=== PATIENT | male | born 1955 | race Caucasian/White ===

== ENCOUNTER 2019-11-09 07:28 | Inpatient (IN) ==
--- NOTE | 2019-10-18 13:02 | PAT Medication Instructions ---
Medication Instructions Date of Service October 18, 2019 Home Medications acetaminophen [Tylenol Arthritis Pain] 1,300 mg PO TID aspirin [Aspir-81] 81 mg PO QPM naproxen sodium [Aleve] 440 mg PO QAM ASK your surgeon for instructions naproxen sodium [Aleve] 440 mg PO QAM Take morning of surgery With a small sip of water, OTHERWISE NOTHING TO EAT OR DRINK AFTER MIDNIGHT: acetaminophen [Tylenol Arthritis Pain] 1,300 mg PO TID (okay to take up to 4 hours prior to surgery if needed) Take evening before surgery acetaminophen [Tylenol Arthritis Pain] 1,300 mg PO TID aspirin [Aspir-81] 81 mg PO QPM Other Notes If you have any questions please call us at [phone] or [phone] or [phone] or [phone]
--- NOTE | 2019-10-19 13:08 | Anesthesiology Consultation ---
Date of Service October 19, 2019 Assessment & Plan (1) Encounter for pre-operative examination: Chart Review Chart Review: Acceptable Risk for Surgery (pending PCP clearance and Covid testing ) and Patient seen in Pre Admission Testing Awaiting surgeon ordered PCP clearance scheduled 10/24 Per PAT appt on 10/19/19, pt resides in [facility]. 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 Educated Covid test needed done three business days prior to surgery. Did educated patient on the importance of social distancing, masking and self quaranting from time of test until surgery. Teaching & Discussion Pre-Anesthesia Teaching/Discussion Notes: Instructed NPO after midnight before surgery,except medications with 15 cc of water. Medication instructions provided according to the PAT guidelines. History Surgery Operation Date: 11/09/19 13:25 Proposed Procedures p Right Anterior Total Hip Arthroplasty - Singh Dennis DO Height/Weight Height: 6 ft 1 in Weight: 105 kg Allergies Allergy/AdvReac Type Severity Reaction Status Date / Time No Known Allergies Allergy Verified 10/18/19 08:57 Medications Home Medications Medication Instructions Recorded Confirmed Last Taken acetaminophen [Tylenol Arthritis 1,300 mg PO TID 10/18/19 10/18/19 Unknown Pain] aspirin [Aspir-81] 81 mg PO QPM 10/18/19 10/18/19 Unknown naproxen sodium [Aleve] 440 mg PO QAM 10/18/19 10/18/19 Unknown Past Medical History Medical History Arthritis GERD (gastroesophageal reflux disease) Occ- no meds needed Kidney stones Exercise / Class Metabolic Activity II 4-5 Yardwork/Stairs/Walk up hill (one flight of stairs- no chest pain or SOB ) Past Family History Family History Mother Family history of diabetes mellitus Past Surgical History Surgical History (Updated 10/19/19 @ 13:32 by Beverly Barone PA-C) History of appendectomy History of colonoscopy History of cystoscopy WITH LITHO/STENT X 3 History of mandibular surgery No issues opening or closing jaw Past Anesthesia History No Hx of Anesthesia Complications (one episode of slow to wake with colonoscopy -no intubation or prolonged stay- just groggy post op) and No Family Hx of Anesthesia Complications History of PONV No Hx of PONV and No Hx of Motion Sickness Social History Smoking Status: Former smoker Do You Dip or Chew Tobacco: Yes (1 CAN PER 1-2 DAYS) Smoking End Date: QUIT 25 YRS AGO Hx Alcohol Use: No Hx Substance Use: No Review of Systems Patient denies chest pain, shortness of breath, dyspnea on exertion, reflux, cough, wheezing, palpitations. No hx of seizures, stroke, PA, apnea/snoring. No hx of blood clots or blood transfusions Physical Exam Vital Signs VITALS BP 148/94 P 77 TEMP 98.2 SP02 98% RESP 16 Constitutional no acute distress ENMT Mouth: no TMJ clicking Thyromental Distance: > or= 3.5 Finger Breadths (3.5) Mallampati Class: I Full dentures on top Missing bottom molars Neck + thick neck (mild ); neck extension not limited Respiratory normal respiratory effort; no respiratory distress Auscultation: lungs clear to auscultation bilaterally; no wheezes Cardiovascular Rate/Rhythm: regular rate and regular rhythm Heart Sounds: no murmur Vessels: no carotid bruit Musculoskeletal Spine: no pain with cervical ROM Neurologic moves all extremities Psychiatric Orientation: alert Testing Laboratory Results 10/19/19 13:31 10/19/19 13:31 PT 11.0 Seconds (9.0-12.0) 10/19/19 13:31 INR 1.0 (0.9-1.1) 10/19/19 13:31 APTT 30.6 Seconds (21.0-31.0) 10/19/19 13:31 Hemoglobin A1c 5.3 % (4.5-5.6) 10/19/19 13:31 Urine Color Yellow 10/19/19 13:31 Urine Appearance Clear (Clear) 10/19/19 13:31 Urine pH 5.0 (4.5-7.5) 10/19/19 13:31 Ur Specific Silt 1.025 (1.000-1.030) 10/19/19 13:31 Urine Protein Negative (Negative) 10/19/19 13:31 Urine Glucose (UA) Negative (Negative) 10/19/19 13:31 Urine Ketones Negative (Negative) 10/19/19 13:31 Urine Nitrite Negative (Negative) 10/19/19 13:31 Ur Leukocyte Esterase Negative (Negative) 10/19/19 13:31 Blood Type O Positive 10/19/19 13:31 Antibody Screen NEGATIVE 10/19/19 13:31 10/19/19 13:31 Urine Culture - Preliminary Urine,Clean Catch No growth - Less than 1,000 colonies/mL, Final report to follow. Electrocardiogram Date: 10/19/19 Findings: + NSR @ (66) Chest X-Ray Date: 10/19/19 Findings: + NAD
--- NOTE | 2019-10-19 13:59 | XRay Report ---
XR chest Pre-admission PA/Lat CLINICAL HISTORY: Preoperative evaluation. COMPARISON STUDY: No previous studies for comparison. FINDINGS: Lung volumes are diminished. Lungs are clear. There is no pneumothorax or pleural effusion. Cardiac size is normal. Mediastinal contours are normal. There is no evidence for pulmonary edema. IMPRESSION: No acute cardiopulmonary findings. ACT 112: Negative or not required by law. Electronically signed by: Juanpablo Hardy M.D. 10/19/2019 1:58 PM
[2019-10-19 14:13] LABS: Basophils # (auto) 0.02 K/uL (0-0.2); Basophils % (auto) 0.2 %; Eosinophils % (auto) 2.1 %; Hematocrit (blood only) 45.7 % (42-52); Hemoglobin 15.7 g/dL (14.0-18.0); Immature Granulocytes # (auto) 0.05 K/uL (0.00-0.02); Immature Granulocytes % (auto) 0.5 %; Lymphocytes % (auto) 25.8 %; Mean Corpuscular Hemoglobin 31.7 pg (25-34); Mean Corpuscular Hgb Conc 34.4 g/dL (32-36); Mean Corpuscular Volume 92.1 fL (80-100); Mean Platelet Volume 9.6 fL (7.4-10.4); Monocytes # (auto) 0.77 K/uL (0.11-0.59); Monocytes % (auto) 8.3 %; Neutrophils # (auto) 5.88 K/uL (1.4-6.5); Neutrophils % (auto) 63.1 %; Platelet Count 294 K/uL (130-400); RDW Coefficient of Variation 13.5 % (11.5-14.5); RDW Standard Deviation 45.9 fL (36.4-46.3); Red Blood Count 4.96 M/uL (4.7-6.1); White Blood Count 9.32 K/uL (4.8-10.8)
[2019-10-19 14:17] LABS: Albumin Level 4.2 gm/dl (3.4-5.0); BUN Creatinine Ratio 25.3 (10-20); Calcium 9.2 mg/dl (8.5-10.1); Creatinine Clr Calc Pharmacy 97.2 ml/min; Est GFR (African American) 93.6; Est GFR (Non-African American) 80.7; Potassium 4.2 mmol/L (3.5-5.1)
[2019-10-19 14:18] LABS: Estimated Average Glucose 105 mg/dl; Hemoglobin A1C 5.3 % (4.5-5.6)
[2019-10-19 14:28] LABS: Partial Thromboplastin Ratio 1.1; Partial Thromboplastin Time 30.6 Seconds (21.0-31.0)
[2019-10-19 14:37] LABS: Appearance Urine Clear (Clear); Bilirubin Urine Negative (Negative); Blood Urine Negative (Negative); Color Urine Yellow; Glucose Urine UA Negative (Negative); Ketones Urine Negative (Negative); Leukocyte Esterase Urine Negative (Negative); Nitrite Urine Negative (Negative); Protein Urine Negative (Negative); Specific Gravity Urine 1.025 (1.000-1.030); Urobilinogen Urine Negative (Negative)
--- NOTE | 2019-10-20 15:16 | Electrocardiogram Report ---
Test Reason : Blood Pressure : / mmHG Vent. Rate : 066 BPM Atrial Rate : 066 BPM P-R Int : 162 ms QRS Dur : 098 ms QT Int : 420 ms P-R-T Axes : 078 048 062 degrees QTc Int : 440 ms Normal sinus rhythm Normal ECG No previous ECGs available Confirmed by Bart España ([id number]) on 10/20/2019 3:15:52 PM Referred By: Singh Dennis Confirmed By:Jl España
--- NOTE | 2019-11-06 11:29 | History & Physical Report ---
Date of Service November 09, 2019 Assessment & Plan (1) Degenerative joint disease of right hip: I have indicated the patient for right anterior total hip replacement. The risks, benefits and complications of surgery were explained to the patient which include but not limited to infection, acute blood loss, DVT/PE, injury to nerves, vessels, bone, soft tissue, arthrofibrosis, chronic pain, failure of the prosthesis, hip dislocation, leg length discrepancy, need for additional surgery, cardiac and pulmonary events and . The patient wished to proceed with surgery and informed consent was obtained at this time. We will plan for 81mg ASA BID post-operatively for DVT prophylaxis. Upon discharge the patient will be discharged home with home health services. Appropriate clearances by PCP were obtained. History of Present Illness Chief Complaint: Right hip pain/DJD Primary Care Provider: Luis Miguel Anderson MD The patient is a 64 year old male who presents with complaints of severe right hip pain and DJD. The patient has failed outpatient conservative treatments to this point which included NSAIDs, IA corticosteroid injection, home exercise/walking program. The patient's pain and limited function have progressed to the point where they severely hinder their activities of daily living and they no longer tolerate exercise programs. They are requesting to proceed with total hip replacement surgery. Allergies Allergy/AdvReac Type Severity Reaction Status Date / Time No Known Allergies Allergy Verified 11/09/19 08:03 Home Medications Home Medications Medication Instructions Recorded Confirmed Type acetaminophen [Tylenol Arthritis 1,300 mg PO TID 10/18/19 11/09/19 History Pain] aspirin [Aspir-81] 81 mg PO QPM 10/18/19 11/09/19 History naproxen sodium [Aleve] 440 mg PO QAM 10/18/19 11/09/19 History irbesartan 150 mg PO DAILY 10/29/19 11/09/19 History Past Med/Surg History Medical History Arthritis GERD (gastroesophageal reflux disease) Occ- no meds needed Kidney stones Surgical History History of appendectomy History of colonoscopy History of cystoscopy WITH LITHO/STENT X 3 History of mandibular surgery No issues opening or closing jaw Family History Mother Family history of diabetes mellitus Social History Preferred Language: Kiswahili Communication Ability: Effective Civil Engineer Required: No Beliefs That Will Affect Care: None Current Living Situation: Spouse and Family Other Information That Helps Us Care for You: No Feels Safe at Home: Yes Safety Concerns: Feels Safe At This Time Smoking Status: Former smoker Do You Dip or Chew Tobacco: Yes (1 CAN PER 1-2 DAYS) ; Smoking End Date: QUIT 25 YRS AGO ; Second Hand Exposure: Yes (UNCLE SMOKED) ; Hx Alcohol Use: No Hx Substance Use: No Review of Systems Review of Systems: All systems reviewed & are unremarkable except as noted in HPI & below Constitutional: as per Subjective / HPI Physical Exam Physical Exam: RLE NVSI +EHL/FHL/TA/GS SILT grossly, +2 DP pulse, compartments soft NT, limited painful ROM of the hip, antalgic gait. Constitutional: WD/WN, vitals as above Eyes: PERRL, conjunctivae normal, anicteric sclerae ENMT: external ear and nose normal, oropharynx normal Neck: trachea midline, no thyromegaly Respiratory: normal respiratory effort, lungs clear to auscultation Cardiovascular: RRR, no murmur, no edema Gastrointestinal (Abdomen): normal bowel sounds, soft, nontender, no hepatosplenomegaly Musculoskeletal: no cyanosis or clubbing, extremities motor strength 5/5 Skin: no rashes, warm and dry Neurologic: patellar DTR's 2+ bilat, sensation intact Psychiatric: A+Ox3, euthymic affect Lymphatic: no cervical or axillary lymphadenopathy Results & Data Results & Data ([facility]) Diagnostic Findings Multiple views of the hip demonstrates severe DJD with complete loss of the joint space. +osteophytes, +sclerosis, +subchondral cysts.
[~2019-11-09 07:28] MED LIST: ACETAMINOPHEN 500 MG TAB PO SCH; BUPIVACAINE 0.5 % 5 MG/1 ML PF 10ML VIAL ONE; CEFAZOLIN 2000MG 2,000 MG/15 ML SYR IV SCH; CeleBREX 200 MG CAP PO SCH; FAMOTIDINE 20 MG TAB PO SCH; GABAPENTIN 600 MG DOSE PO SCH; LR 500ML BOLUS, THEN 15ML/HR IV SCH; METOCLOPRAMIDE HCL 10 MG TABLET PO SCH; ROPIVACAINE 0.5% HCL/PF 150 MG, BUPIVACAINE 0.5% MPF 30 ML, EPINEPHrine 30MG/30ML (OR U... INSTIL SCH; TRANEXAMIC ACID 1,000 MG **IV Intra-op IV SCH; TRANEXAMIC ACID 1,000 MG **IV Pre-op IV SCH; dexAMETHasone 4 MG TAB PO SCH
[2019-11-09] MEDS ORDERED: MIDAZOLAM HCL 1 MG/ML 2ML VIAL ONE (07:52)
[2019-11-09] MEDS ORDERED: PROPOFOL IV EMULSION 10 MG/ML 20 ML VIAL IV ONE ×3 (07:58→12:55)
[2019-11-09] MEDS ORDERED: LIDOCAINE HCL 2% 2 ML VIAL/AMP(20MG/ML) INFIL ONE (07:58)
[2019-11-09] MEDS ORDERED: ONDANSETRON INJ 2 MG/ML 2 ML VIAL ONE (07:58)
[2019-11-09] MEDS ORDERED: DEXAMETHASONE SOD INJ 4 MG/ML VIAL ONE (07:58)
[2019-11-09] MEDS ORDERED: GLYCOPYRROLATE 0.2 MG/ML VIAL ONE (07:58)
[2019-11-09] MEDS ORDERED: ePHEDrine sulfate 50 MG/ML AMP IV PRN (09:06)
[2019-11-09] MEDS ORDERED: ONDANSETRON INJ 2 MG/ML 2 ML VIAL IV PRN ×2 (09:06→12:58)
[2019-11-09] MEDS ORDERED: ATROPINE SULFATE 0.1 MG/ML 10ML SYR IV PRN (09:06)
[2019-11-09] MEDS ORDERED: fentaNYL citrate 100 MCG/2 ML VIAL IV PRN (09:06)
[2019-11-09] MEDS ORDERED: HYDROmorphone INJ 2 MG/ML SYR/VIAL IV PRN (09:06)
--- NOTE | 2019-11-09 09:35 | History & Physical Bridge Note ---
Date of Service November 09, 2019 History & Physical Bridge Note I have examined the patient, reviewed the History & Physical and in the interval since the performance of the History & Physical I have noted the following changes of clinical significance: no changes noted
[2019-11-09] MEDS ORDERED: ORTHO JOINT ANESTHETIC ONE (09:45)
[2019-11-09] MEDS ORDERED: BACITRACIN INJ 50,000 UNIT VIAL ONE (09:45)
[2019-11-09] MEDS ORDERED: ePHEDrine sulfate 50 MG/ML SYR ONE (10:14)
--- NOTE | 2019-11-09 11:40 | Post Operative Brief Note ---
Immediate Post Op Note v1 Date of Surgery November 09, 2019 Pre & Post Diagnosis Operation Date: 11/09/19 09:50 Pre-Op Diagnosis: Unilateral Primary Osteoarthritis, Right Hip Post-Op Diagnosis: Unilateral Primary Osteoarthritis, Right Hip I identified the patient and participated in the time-out.: Yes Procedure Operation Date: 11/09/19 09:50 Actual Procedures p Right Anterior Total Hip Arthroplasty, uncemented (Right) - Singh Dennis DO Surgeon Singh Dennis DO Automatic Developer Yeison Hatch Estimated Blood Loss 195 Findings Consistent with Post-Op Diagnosis Fluids 1600 cc LR Specimens Femoral head Anesthesia Type Spinal MAC Complications none Disposition Disposition: Recovery Room Overlapping Procedure I was present for: the critical portions of procedure. I was immediately available: during the entire case. Back up surgeon: was not required during procedure.
--- NOTE | 2019-11-09 11:43 | Operative Report ---
Post Operative Report Pre & Post Diagnosis Operation Date: 11/09/19 09:50 Pre-Op Diagnosis: Unilateral Primary Osteoarthritis, Right Hip Post-Op Diagnosis: Unilateral Primary Osteoarthritis, Right Hip I identified the patient and participated in the time-out.: Yes Procedure Operation Date: 11/09/19 09:50 Actual Procedures p Right Anterior Total Hip Arthroplasty, uncemented (Right) - Singh Dennis DO Surgeon Singh Dennis DO Subway Car Repairer Yeison Hatch Estimated Blood Loss 195 Findings Consistent with Post-Op Diagnosis Fluids 1600 cc LR Specimens Femoral head Anesthesia Type Spinal MAC Complications none Disposition Disposition: Recovery Room Indications The patient is a 64-year-old male who presents with severe progressive right hip AVN/DJD who has failed outpatient conservative treatments. I indicated the patient for a anterior total hip replacement and the risks and benefits were explained in detail which include but not limited to infection, bleeding, blood clot, damage to surrounding bone, nerves, vessels, soft tissue, hip dislocation, failure of the prosthesis, leg length discrepancy, need for additional surgery and . The patient agreed to proceed with replacement of the hip and informed consent was obtained. Appropriate clearances were obtained. Description of Procedure COMPONENTS USED: [employer] NephPhase Focus Anthology hip system: Acetabulum size 56, femur size 10 high offset, femoral head 36+, liner 5630, acetabular screw 25 mm x 1. DESCRIPTION OF PROCEDURE: Following satisfactory spinal anesthesia, the patient was placed supine on the OR table. The left leg was placed in the well leg allen and the right leg in the traction device. The right leg was prepared with ChloraPrep and draped sterilely. A surgical timeout was performed, patient identified and site saqib verified. Appropriate antibiotics were given. A standard anterior approach in the interval between the sartorius and tensor muscles was performed. Dissection was carried down through subcutaneous tissues. Electrocautery was utilized for hemostasis. Circumflex femoral vessels were identified, tied and ligated. The anterior capsular fat pad was removed and the capsulotomy was performed revealing the arthritic femoral neck and head. A femoral neck cut was made with reciprocating saw and the bone fragments removed. The acetabular self-retraining retractor was placed. Acetabular reaming was completed under fluoroscopic guidance, a 56 shell was impacted into an anatomic position and secured with a dome screw. Local anesthetic was placed and following irrigation, the polyethylene liner was placed. The femur was placed into position of external rotation, extension and adduction. Femoral canal was prepared up to the size 10 high offset. Trial reduction with a 36+0 neck length head showed good soft tissue tension, leg lengths restored, and good fit and fill of the proximal canal using fluoroscopic landmarks. The hip was dislocated. The trial component was removed. The final implant was placed. The hip was irrigated with sterile saline solution and reduced. A Betadine soak was performed. After 3 minutes, the hip was once more irrigated with copious sterile saline solution with bacitracin. Aarti-incisional soft tissue was injected utilizing [place] [employer] which includes a combination of Ropivicaine 0.5% 150mg, Bupivicaine 0.5%/Epinephrine 1:200,000 30ml, Toradol 30mg, Dexamethasone 4mg, Ketamine 10mg, Clonidine 100mcg and NSS 30ml solution. The capsule was then closed with 1-0 Vicryl interrupted figure of eight sutures. The fascia was closed with a running suture of #1 Vicryl, the subcutaneous tissues with 2-0 Vicryl and the skin demario and a dry sterile dressing was applied which included Nan incisional VAC. The patient tolerated the procedure well and was transported to PACU in stable condition. Due to the complex nature of the procedure, the entire surgery was performed with the operational assistance of Yeison Hatch PA-C. The assistant corporate controller, under direct supervision, was involved in the actual performance of all aspects of the surgical procedure including patient positioning, hemostasis, tissue retraction, instrument management and wound closure. I attest to the content of the Intraoperative Record and any orders documented therein. Any exceptions are noted below.
--- NOTE | 2019-11-09 11:49 | Fluoroscopy Report ---
FL hip RT 1V CLINICAL HISTORY: RT ANTERIOR HIP COMPARISON STUDY: FLUOROSCOPY TIME: 39 seconds. NUMBER OF FLUOROSCOPIC IMAGES: 2 FINDINGS: 2 intraoperative fluoroscopic spot images reveal postsurgical changes of a total right hip arthroplasty. There is no dislocation IMPRESSION: Intraoperative fluoroscopic spot images demonstrating a total right hip arthroplasty. ACT 112: Negative or not required by law. Electronically signed by: Tristan Adler M.D. 11/09/2019 11:48 AM
--- NOTE | 2019-11-09 12:33 | Anesthesiology Progress Note ---
Date of Service November 09, 2019 Anesthesia Post Procedure Vital Signs Vital Signs: Temp Pulse Pulse Resp BP BP Pulse Ox 11/09/19 12:20 36.5 C 60 18 114/76 95 11/09/19 12:10 70 18 121/82 95 11/09/19 12:02 36.4 C L 75 18 110/72 98 11/09/19 09:02 58 L 20 137/85 97 11/09/19 07:57 37.2 C 54 L 20 146/91 H 96 Pain Intensity Right Hip: Pain Intensity: 4 Transfer of Care Handoff Completed per policy Notes Mental Status: alert / awake / arousable and participated in evaluation Patient Amnestic to Procedure: Yes Nausea / Vomiting: adequately controlled Pain: adequately controlled Airway Patency, RR, SpO2: stable & adequate BP & HR: stable & adequate Hydration State: stable & adequate Anesthetic Complications: no major complications apparent and Pt Satisfied with anesthetic care
--- NOTE | 2019-11-09 12:47 | XRay Report ---
XR hip 1V RT w pelvis HISTORY: 64 years-old Male IN PACU - A/P PELVIS and LATERAL HIP right hip total joint arthroplasty COMPARISON: Fluoroscopic images of the right hip 11/09/2019 TECHNIQUE: AP view of the pelvis with crosstable lateral view of the right hip FINDINGS: Right hip total joint arthroplasty. There is satisfactory alignment without acute fracture or retaine d foreign body. Lateral skin demario with surgical drainage catheter. Moderate left hip osteoarthriti s. IMPRESSION: Right hip total joint arthroplasty with expected postoperative findings. ACT 112: Negative or not required by law. The above report was generated using voice recognition software. It may contain grammatical, syntax o r spelling errors. Electronically signed by: Karthik Decker M.D. 11/09/2019 12:46 PM
[2019-11-09] MEDS ORDERED: MAGNESIUM HYDROXIDE SUSP 30 ML UDC PO PRN (12:58)
[2019-11-09] MEDS ORDERED: bisacodyL 10 MG SUPP PR PRN (12:58)
[2019-11-09] MEDS ORDERED: HYDROmorphone INJ 0.5 MG/0.5 ML SYR IV PRN (12:58)
[2019-11-09] MEDS ORDERED: OXYCODONE HCL IR 5 MG TAB (IMMEDIATE RELEASE) PO PRN (12:58)
[2019-11-09] MEDS ORDERED: NALOXONE HCL 0.4 MG/1 ML VIAL/CARP IV PRN (12:58)
[2019-11-09] MEDS ORDERED: METOCLOPRAMIDE HCL INJ 5 MG/ML 2 ML VIAL IV PRN (12:58)
[2019-11-09] MEDS ORDERED: CEFAZOLIN 3000MG/72.5 ML BAG IV SCH (14:00)
[2019-11-09] MEDS: SODIUM CHLORIDE 0.9% 1000ML 1,000 ML IV SCH (14:08)
[2019-11-09] MEDS: ACETAMINOPHEN 500 MG TAB PO SCH (16:21)
[2019-11-09] MEDS: KETOROLAC TROMETHAMINE 15 MG/ML VIAL IV SCH (17:42)
[2019-11-09] MEDS: CEFAZOLIN 3,000 MG in DEXTROSE 5% 50 ML IV SCH (17:43)
--- NOTE | 2019-11-09 20:33 | Orthopedic Progress Note ---
Date of Service November 09, 2019 Assessment & Plan (1) Degenerative joint disease of right hip: s/p R anterior SCOT -ancef x24 -DVT ppx: SCDs, TEDs, 81 mg ASA BID -WBAT RLE -PT/OT -PO XR demonstrates well aligned well fixed prothesis without fracture/dislocation. -am labs -DC planning Admission and Anticipated Discharge Date Admission Date: November 09, 2019 Subjective Post Operative Progress Note Patient seen sitting in chair at bedside, comfortable, denies complaints, pain well controlled, no acute issues. Review of Systems Review of Systems: All systems reviewed & are unremarkable except as noted in HPI & below Constitutional: as per Subjective / HPI Physical Exam Physical Exam: RLE NVSI +EHL/FHL/TA/GS SILT grossly, +2 DP pulse, compartments soft NT, dressing cdi. Constitutional: WD/WN, vitals as above Results & Data ([place]) Vital Signs (Past 12 Hours) Vital Signs Temp Pulse Pulse Resp BP BP Pulse Ox 11/09/19 19:34 36.8 C 75 16 114/67 93 11/09/19 16:54 36.5 C 92 H 18 151/93 H 97 11/09/19 15:52 36.3 C L 50 L 16 125/63 96 11/09/19 14:15 72 16 116/72 94 11/09/19 13:46 79 16 123/64 94 11/09/19 13:24 36.3 C L 65 16 123/71 95 11/09/19 12:52 36.4 C L 45 L 114/70 95 11/09/19 12:30 55 L 16 115/72 95 11/09/19 12:20 36.5 C 60 18 114/76 95 11/09/19 12:10 70 18 121/82 95 11/09/19 12:02 36.4 C L 75 18 110/72 98 11/09/19 09:02 58 L 20 137/85 97
[2019-11-09] MEDS: DOCUSATE SODIUM 100 MG CAP PO SCH (20:47)
[2019-11-09] MEDS ORDERED: SENNA 8.6 MG TAB PO SCH (21:00)
[2019-11-10] MEDS: KETOROLAC TROMETHAMINE 15 MG/ML VIAL IV SCH ×3 (00:30→11:42)
[2019-11-10] MEDS: ACETAMINOPHEN 500 MG TAB PO SCH ×2 (00:30→07:57)
[2019-11-10] MEDS: SODIUM CHLORIDE 0.9% 1000ML 1,000 ML IV SCH (01:39)
[2019-11-10] MEDS: CEFAZOLIN 3,000 MG in DEXTROSE 5% 50 ML IV SCH (02:01)
[2019-11-10 06:20] LABS: Hematocrit (blood only) 38.1 % (42-52); Hemoglobin 12.8 g/dL (14.0-18.0); Immature Granulocytes # (auto) 0.12 K/uL (0.00-0.02); Immature Granulocytes % (auto) 0.6 %; Lymphocytes # (auto) 1.34 K/uL (1.2-3.4); Lymphocytes % (auto) 6.3 %; Mean Corpuscular Hemoglobin 30.6 pg (25-34); Mean Corpuscular Hgb Conc 33.6 g/dL (32-36); Mean Corpuscular Volume 91.1 fL (80-100); Mean Platelet Volume 9.6 fL (7.4-10.4); Monocytes # (auto) 1.13 K/uL (0.11-0.59); Monocytes % (auto) 5.3 %; Neutrophils # (auto) 18.67 K/uL (1.4-6.5); Neutrophils % (auto) 87.8 %; Platelet Count 270 K/uL (130-400); RDW Coefficient of Variation 13.3 % (11.5-14.5); RDW Standard Deviation 44.1 fL (36.4-46.3); Red Blood Count 4.18 M/uL (4.7-6.1); White Blood Count 21.26 K/uL (4.8-10.8)
[2019-11-10 06:33] LABS: Calcium 8.5 mg/dl (8.5-10.1); Creatinine Clr Calc Pharmacy 90.3 ml/min; Est GFR (African American) 85.2; Est GFR (Non-African American) 73.5; Potassium 4.2 mmol/L (3.5-5.1)
[2019-11-10] MEDS: DOCUSATE SODIUM 100 MG CAP PO SCH (08:47)
[2019-11-10] MEDS ORDERED: MULTIVITAMIN TAB PO SCH (09:00)
[2019-11-10] MEDS ORDERED: IRBESARTAN 150 MG TAB PO SCH (09:00)
[2019-11-10] MEDS ORDERED: ASPIRIN 81 MG ECTAB PO SCH (09:00)
--- NOTE | 2019-11-10 09:27 | Orthopedic Progress Note ---
Date of Service November 10, 2019 Assessment & Plan (1) Degenerative joint disease of right hip: s/p R anterior SCOT POD#1 -ancef x24 -DVT ppx: SCDs, TEDs, 81 mg ASA BID -WBAT RLE -PT/OT -PO XR demonstrates well aligned well fixed prothesis without fracture/dislocation. -am labs - as above, hgb 12.8 -DC planning - home with HH Admission and Anticipated Discharge Date Admission Date: November 09, 2019 Subjective Post Operative Progress Note Patient seen sitting up in bed, comfortable, denies complaints, pain well controlled, no acute issues. Denies F/C/N/V/SOB/CP. Review of Systems Review of Systems: All systems reviewed & are unremarkable except as noted in HPI & below Constitutional: as per Subjective / HPI Physical Exam Physical Exam: RLE NVSI +EHL/FHL/TA/GS SILT grossly, +2 DP pulse, compartments soft NT, dressing cdi. Constitutional: WD/WN, vitals as above Results & Data ([facility]) Vital Signs (Past 12 Hours) Vital Signs Temp Pulse Resp BP Pulse Ox 11/10/19 08:16 36.5 C 60 16 128/79 98 11/10/19 07:52 36.5 C 60 16 128/79 98 11/10/19 02:42 36.6 C 74 16 107/66 96 11/09/19 22:58 36.4 C L 66 16 109/68 94 Laboratory Results 11/10/19 11/10/19 11/09/19 Range/Units 05:23 05:23 07:54 WBC 21.26 H (4.8-10.8) K/uL RBC 4.18 L (4.7-6.1) M/uL Hgb 12.8 L (14.0-18.0) g/dL Hct 38.1 L (42-52) % MCV 91.1 (80-100) fL MCH 30.6 (25-34) pg MCHC 33.6 (32-36) g/dL RDW Std Deviation 44.1 (36.4-46.3) fL RDW Coeff of Devora 13.3 (11.5-14.5) % Plt Count 270 (130-400) K/uL MPV 9.6 (7.4-10.4) fL Immature Gran % (Auto) 0.6 % Neut % (Auto) 87.8 % Lymph % (Auto) 6.3 % [place] % (Auto) 5.3 % Eos % (Auto) 0.0 % Baso % (Auto) 0.0 % Neut # (Auto) 18.67 H (1.4-6.5) K/uL Lymph # (Auto) 1.34 (1.2-3.4) K/uL [place] # (Auto) 1.13 H (0.11-0.59) K/uL Eos # (Auto) 0.00 (0-0.5) K/uL Baso # (Auto) 0.00 (0-0.2) K/uL Immature Gran # (Auto) 0.12 H (0.00-0.02) K/uL Sodium 139 (136-145) mmol/L Potassium 4.2 (3.5-5.1) mmol/L Chloride 108 H (98-107) mmol/L Carbon Dioxide 25 (21-32) mmol/L Anion Gap 7.0 (3-11) BUN 26 H (7-18) mg/dl Creatinine 1.07 (0.6-1.4) mg/dl Est Cr Clr Drug Dosing 90.3 ml/min Est GFR ( Amer) 85.2 Est GFR (Non-Af Amer) 73.5 BUN/Creatinine Ratio 24.0 H (10-20) Glucose 149 H (70-99) mg/dl Calcium 8.5 (8.5-10.1) mg/dl Hepatitis C Ab Screen Neg (Neg)
[2019-11-10] MEDS ORDERED: CeleBREX 200 MG CAP PO SCH (21:00)
--- NOTE | 2019-11-10 21:10 | Discharge Summary ---
Date of Service November 10, 2019 Admission HPI Per Admitting Provider The patient is a 64 year old male who presents with complaints of severe right hip pain and DJD. The patient has failed outpatient conservative treatments to this point which included NSAIDs, IA corticosteroid injection, home exercise/walking program. The patient's pain and limited function have progressed to the point where they severely hinder their activities of daily living and they no longer tolerate exercise programs. They are requesting to proceed with total hip replacement surgery. Principal Diagnosis Right total hip replacement -Right hip DJD Discharge Exam RLE NVSI +EHL/FHL/TA/GS SILT grossly, +2 DP pulse, compartments soft NT, dressing cdi. Constitutional WD/WN, vitals as above Discharge Data Allergies Allergy/AdvReac Type Severity Reaction Status Date / Time No Known Allergies Allergy Verified 11/09/19 08:03 Consultations 11/10/19 08:00 Consult Case Management - Discharge Planning Routine Procedures Performed Operation Date: 11/09/19 09:50 Actual Procedures p Right Anterior Total Hip Arthroplasty, uncemented (Right) - Singh Dennis DO Ordered Studies 11/09/19 09:50 FL fluoroscopy <1hr Routine FL hip RT 1V Routine Hospital Course (1) Degenerative joint disease of right hip: The patient is a 64 -year-old male who presents with long standing history of severe right hip DJD and failed outpatient conservative treatments. The patient's symptoms have progressed to the point where it has been difficult to perform even normal activities of daily living. I indicated the patient for a right total hip arthroplasty, the risks, benefits and complications of the procedure include but not limited to infection, bleeding, damage to bone, nerves, vessels, surrounding soft tissue, may develop blood clots, loss of function, leg length discrepancy, dislocation, failure of the components, loosening of the components, the need for additional surgery and . The patient wished to proceed with surgery at this time and informed consent was obtained. Hospital Course: On 11/09/19 the patient was taken to the operating room, adequate anesthesia administered and underwent a right total hip arthroplasty. The patient tolerated the procedure well and was taken to the PACU in stable condition. Post-operatively the patient was started on a DVT ppx medication and given a ppropriate IV antibiotics. Consults were placed to physical therapy, occupational therapy and case management. On POD#1, the patient did well overnight and their pain was well controlled. Labs were drawn and the Hgb was 12.1. The patient progressed well with PT. Dressings were changed at this time and the incision was clean, dry and intact. The patients hospital stay was relatively uneventful and they were deemed stable by the orthopedic team and consultants to be discharged home with on 11/10/19. Discharge Instructions: Upon discharge the patient may weight bear as tolerates through their operative extremity. They were instructed to keep the incision clean and dry at all times. The patient may shower but should not submerge the incision, avoid bathing, pools and hot tubes. The patient was given a script for pain medication and should take as instructed. The patient was given a script for DVT ppx 81mg ASA BID and should take as directed. The patient was instructed to not drive or travel for long distances until cleared to do so. If the patient develops any symptoms of fevers, chills, nausea, vomiting, increased redness, swelling, pain or drainage from the surgical site, they should notify the office and/or proceed to the nearest emergency room. The patient should follow up in 10-14 days after surgery for their routine post-operative follow-up appointment and should call the office to confirm the date and time. s/p R anterior SCOT POD#1 -ancef x24 -DVT ppx: SCDs, TEDs, 81 mg ASA BID -WBAT RLE -PT/OT -PO XR demonstrates well aligned well fixed prothesis without fracture/dislocation. -am labs - as above, hgb 12.8 -DC planning - home with Total Time Total Time Spent Total Time Spent (In Minutes): 30 Discharge Plan Discharge Items Patient Disposition: Home - Home Health Services Reason For Visit: Unilateral Primary Osteoarthritis, Right Hip Discharge Diagnosis: Right anterior total hip replacement Condition on Discharge: Good Activity: Per Instructions section Lifting: Wait until after follow-up appointment Bathing: Keep incision dry Bathing Comment: No bathing, pools or hot tubs Sexual Activity: Wait until after follow-up appointment Exercise/Sports: Wait until after follow-up appointment Driving/Machine Use: No driving Weightbearing: Full weightbearing Non-emergency contact: Primary Care Provider and Surgeon Call non-emergency contact if: you have any medication questions, your symptoms worsen, your pain is not controlled, your pain is worsening, your pain is unusual for you, your pain is concerning for you, you have a fever, your temperature is above 101, your wound has increased redness, your wound has increased drainage and your wound pain has increased Follow-up/Referrals: Luis Miguel Anderson MD [Primary Care Provider] - Diet: Regular Addtl Attending Provider Instructions: ACTIVITY RECOMMENDATIONS: SELF CARE INSTRUCTIONS AFTER TOTAL HIP REPLACEMENT : Direct Anterior Approach Until the incision and soft tissues around your hip have healed, there is a possibility that the hip prosthesis could dislocate. A. Hip flexion ( Up & Down out of chair or steps ) may be difficult. This is normal. B. Numbness in front of the thigh is also normal for a few weeks. C. Use hand rails when walking on stairs. D. Wear low heeled shoes with non-slip soles. E. Be sure that your floors are free of things that could trip you - throw rugs, electrical cords, small objects. Avoid wet and waxed floors, especially with crutches and canes. F. Try to walk several times a day with rest periods between. G. Continue with all the exercises taught to you in the hospital. Again, make walking a part of your daily routine. SPECIAL CARE INSTRUCTIONS: VERY IMPORTANT TO READ AND REVIEW A. You may still be at risk for phlebitis and blood clots. 1. Wear surgical stockings (SUJEY hose) for 2 weeks after surgery to improve circulation and reduce swelling. 2. Take Aspirin 81mg twice daily for 4 weeks or as directed by your doctor. This is your blood thinner. 3. High risk patients may be prescribed a stronger blood thinner if necessary. 4. If you are on Coumadin normally, your family doctor/delivery and installation subcontractor should monitor your blood work. Expect a phone call the day of or the day after bloodwork is drawn to adjust your dosage. B. You must take antibiotics before having dental work, bladder, bowel and other surgery. Your doctor will provide you with a permanent card to carry describing precautions. C. Call [facility] if you have a fever, redness or swelling around the incision, cloudy drainage from incision, or sudden increase in pain in your hip, not relieved by your regular pain medication. D. Please call the office at if you have any concerns or questions about your operation or recovery. * YOU MAY SHOWER, NO TUB BATHS UNTIL CLEARED BY YOUR DOCTOR. - Keep an extra close eye on the top portion of your incision. Be sure to keep clean & dry. * WEAR SUJEY HOSE 20 HOURS PER DAY FOR 2 WEEKS. * YOU MAY PROGRESS FROM A WALKER, TO A CANE, TO INDEPENDENT AT YOUR OWN PACE. * MOST PATIENTS WILL HAVE HOME NURSING FOR THERAPY. IF YOU DECIDE TO DO OUTPATIENT PHYSICAL THERAPY, PLEASE SCHEDULE THIS 3 TIMES PER WEEK. *PREVENA incisional vac is a special dressing covering your incision. This dressing provides a sterile dry environment while you are healing. The dressing is to be left in place for 7 days post-operatively. Your home nurse or surgeon will remove. If you develop any redness or blisters or have any questions notify your surgeon immediately. FOLLOW UP VISIT: If appointment is not already scheduled: Please call [facility] to make a follow-up appointment for 2 weeks after your surgery at . Pending Studies at Discharge: No Stand-Alone Forms: My [facility], Opioid Pain Management, Smoking Cessation Medications and DC Order Prescriptions: New celecoxib [Celebrex] 200 mg Capsule 200 mg PO BID PRN (Reason: pain/inflammation) Qty: 28 RF: 0 aspirin 81 mg Tablet,Delayed Release (Dr/Ec) 81 mg PO BID Qty: 56 RF: 0 acetaminophen 500 mg Tablet 1,000 mg PO Q8H PRN (Reason: pain/fevers) Qty: 90 RF: 0 oxycodone 5 mg Tablet 5 mg PO Q6H MDD 4 PRN (Reason: pain) Qty: 30 RF: 0 sennosides [Senokot] 8.6 mg Tablet 17.2 mg PO HS PRN (Reason: constipation) Qty: 28 RF: 0 Continued irbesartan 150 mg Tablet 150 mg PO DAILY RF: 0 Discontinued acetaminophen [Tylenol Arthritis Pain] 650 mg Tablet Extended Release 1,300 mg PO TID RF: 0 naproxen sodium [Aleve] 220 mg Capsule 440 mg PO QAM RF: 0 aspirin [Aspir-81] 81 mg Tablet,Delayed Release (Dr/Ec) 81 mg PO QPM RF: 0 Discharge Orders: Discharge Order (Routine); Ordered 11/10/19 Ordered By: Singh Torrez/Other Patient Handouts: DVT Complications, DVT Post Op Prevention Admission Data Admit Date/Time: 11/09/19 12:05 Attending Provider: Singh Dennis Admit Provider: Singh Dennis Primary Care Provider: Luis Miguel Anderson Other Interventions: Discharge Summary Assessment (RN) Last Done: 11/10/19 08:16 DC Date/Time DO NOT enter until pt leaves facility: 11/10/19 14:02
== END 2019-11-10 14:02 | disposition home health service (06) | DRG 470 ==
LOC: ASU 07:28 → 3E 12:05